=== PATIENT | female | born 1970 | race Caucasian/White ===

== ENCOUNTER 2016-10-22 09:13 | Day surgery (SDC) | payer MEDICAID ==
[~2016-10-22] VITALS: Ht 170.2 cm; Wt 94.0 kg
--- NOTE | 2016-10-24 08:12 | OR ---
ADMIT: 10/22/2016 RM/LOC: [facility] MR#: [id number] [facility] [address] [id number] [place] [address] Operative/Delivery Room Report SEX: F AGE: 46 : 1970 SURGERY DATE: 10/22/2016 SURGEON: Brigette Farfan MD PREOPERATIVE DIAGNOSES: 1. Cervical spondylosis. 2. Cervicalgia. 3. Chronic daily headaches. POSTOPERATIVE DIAGNOSES: 1. Cervical spondylosis. 2. Cervicalgia. 3. Chronic daily headaches. OPERATION: Bilateral C2, C3, C4, and C5 medial branch block. INDICATION FOR PROCEDURE: The patient is a pleasant female with history of chronic neck pain with headache secondary to above-mentioned diagnosis. Comes here for planned cervical medial branch block. ANESTHESIA: Local without sedation. ESTIMATED BLOOD LOSS: Zero. COMPLICATIONS: None. DESCRIPTION OF PROCEDURE: After the patient was seen in the preoperative area, vital signs were taken prior to procedure. The risks, benefits, and alternative therapies were discussed at length. The patient comes in, consent is obtained and updated. The patient was taken to the fluoroscopy suite and placed on the fluoroscopic table in the prone position. Pressure points were padded to comfort, monitor applied, and a timeout performed. Next, the patient's jaw was turned to the left side. The patient was monitored throughout the procedure. The patient's cervical area was then prepped and draped in a sterile fashion using ChloraPrep. Fluoroscopy was then brought in to identify C2-C3 junction, C3 waist, C4 waist, and C5 waist on the right ADMIT: 10/22/2016 RM/LOC: [facility] MR#: [id number] [address] [id number] BOJORQUEZSALOMEN Alon [address] [place] [address] Operative/Delivery Room Report SEX: F AGE: 46 : 1970 side. Made contact with C2-C3 junction, C3 waist, C4 waist, and C5 waist on the right side. A 22-gauge curved tip spinal needle was then advanced until making contact with C3 waist, C4 waist, and C5 waist. Isovue-300 was used to confirm the placement. Then I injected 2 ml solution consisting of 5 mg of dexamethasone with 0.25% Marcaine distributed at each level. On examination ten minutes after the procedure, the patient had 100% pain relief, and range of motion was full at the neck. Then we moved on the left side and repeated the same procedure. On examination 20 mintues after the procedure, the patient had 80% reduction in pain. Range of motion went from 15 to 25 degree of extension. Brigette Farfan MD/ bubba JOB #: [id number] CC: Brigette Farfan, Attending Physician Manny Vasquez, Family Physician
== END 2016-10-22 11:25 | disposition home or self-care (01) ==
LOC: SSS 09:13
PROC: BR14YZZ Fluoroscopy of Cervical Facet Joint(s) using Other Contrast (ICD-10-PCS; principal; 2016-10-22)
PROC: 3E0T33Z Introduction of Anti-inflammatory into Peripheral Nerves and Plexi, Percutaneous Approach (ICD-10-PCS; principal; 2016-10-22)
PROC: 3E0T3BZ Introduction of Anesthetic Agent into Peripheral Nerves and Plexi, Percutaneous Approach (ICD-10-PCS; principal; 2016-10-22)
DX: G89.29 Other chronic pain (principal); M47.812 Spondylosis without myelopathy or radiculopathy, cervical region; R51 Headache; Z79.899 Other long term (current) drug therapy